=== PATIENT | male | born 1945 | race Caucasian/White ===

== ENCOUNTER 2022-02-26 08:25 | Outpatient (CLI) | payer MEDICARE, OTHER, SELFPAY ==
--- NOTE | 2022-02-26 | ECG_ITS ---
[facility] Test Date: 2022-02-26 Pat Name: Aminata Nicolas Department: Room: Gender: Male Blockmason: : 1945 Requested By: Rosalva Camacho Order Number: [id number] Echevarria MD: Valerio Harris M.D. Interpretive Statements NAME OF STUDY: LEXISCAN SESTAMIBI STRESS TEST INDICATION: [Chest Pain, ] Procedure: At the baseline, the blood pressure was 119/85 mmHg with a heart rate of 47 bpm. The electrocardiogram showed sinus bradycardia, normal axis with normal ST and T's. The Lexiscan was infused over a period of 20 seconds. A total of 0.4 mg of Lexiscan was infused. The stress phase was continued for a total of 5 minutes. Heart rate was at the end of stress phase was 64 bpm and a blood pressure of 135/74 mmHg. The EKG at the peak infusion revealed normal sinus rhythm with no significant ST-T wave changes. Sestamibi was injected 20 seconds after the Lexiscan infusion. Blood pressure at the end of recovery phase was 130/74 mmHg with a heart rate of 89 bpm. Conclusion: 1. Normal EKG response to Lexiscan infusion 2. No Lexiscan induced chest pain or cardiac arrhythmia. 3. Normal blood pressure and heart rate response. 4. Sestamibi/sestamibi perfusion scan pending; see separate report. Electronically Signed On 03-03-2022 21:11:34 CDT by Valerio Harris M.D. [email or web address]
[2022-02-26 08:53] VITALS: BMI 25.1
--- NOTE | 2022-02-26 08:55 | NMCV_ITS ---
NM rashida perf SPECT r/s* [id number] Aminata Nicolas Age: 76 Gender: M : 1945 Exam Date: 02/26/2022 09:43 Ordering Phys: Rosalva Camacho NP Technologist: DEEPTI Negro Exam Location: [facility] Indications: FATIGUE, EXERCISE INTOLERANCE STRESS TEST Please see separate stress test report in [facility] for full findings IMAGE PROTOCOL Rest/Stress 1 Lexiscan Day Radiopharmaceutical Dose (mCi) Administration Site Administered by Rest: Tc-99m 11.0 IV DEEPTI Farias Sestamibi Stress:Tc-99m 32.6 IV DEEPTI Farias Sestamibi Rest: 60 Discovery 630 30 Discovery 630 0.4mg Lexiscan. Images obtained in supine and prone position. SPECT RESULTS Technical Quality: Excellent Raw Data Analysis: Normal Image Corrections: No attenuation or motion correction applied Summed Stress Score: 0 Summed Rest Score: 0 Summed Difference Score: 0 PERFUSION FINDINGS There is a large sized, reversible perfusion defect noted in inferolateral, lateral and inferior kim. This is consistent with large area of ischemia in left circumflex and RCA territory. Stress Image LV EF (%):Stress EDV (mL):EDVI (ml/m squared ):TID: Stress ESV (mL): ESVI (ml/m squared ): Rest Image LV EF (%): FUNCTIONAL FINDINGS: There is normal left ventricular systolic function. IMPRESSIONS 1. Abnormal myocardial perfusion imaging with large area of ischemia noted in the left circumflex and RCA territories. 2. LV systolic function is normal Valerio Harris MD (Electronically Signed) Final Date: 27 February 2022 09:51 S
[2022-02-26] MEDS: regadenoson 0.4 Mg/5 ml Syringe IVP (10:11)
[2022-02-26 10:25] VITALS: BP 135/76; PULSE 61
== END 2022-02-26 08:26 | disposition home or self-care (01) ==
LOC: CDL 08:30
PROVIDERS: PCP Nurse Practitioner Family; Visit Provider Nurse Practitioner Family
DX: R07.89 Other chest pain (principal); I10 Essential (primary) hypertension; R53.83 Other fatigue; R68.89 Other general symptoms and signs
CPT/HCPCS: 78452; 93017; A9500; J2785